=== PATIENT | male | born 1935 | race Caucasian/White ===

== ENCOUNTER 2016-07-28 17:18 | Emergency (ER) | payer OTHER ==
[2016-07-28 17:30] VITALS: RESP 16
[2016-07-28] MEDS ORDERED: OXYCODONE/APAP 5/325 TAB PO ONE (17:43)
--- NOTE | 2016-07-28 17:48 | EDPHY ---
H & P Time Seen by Provider: 07/28/16 17:28 HPI/ROS: CHIEF COMPLAINT: Left shoulder pain HISTORY OF PRESENT ILLNESS: This is a 80-year-old male presenting to the emergency room from [facility] for left shoulder and trapezius pain. Patient's son is at the bedside he reports patient took a fall 1 -2 months ago hyperextended his left arm initial x-rays were negative but questioning whether he tore his rotator cuff to the amount of pain he is having with range of motion, pain radiates to his trapezius. Patient states has been having intermittent pain since his fall but since Thursday pain has increased with increased pain to his left trapezius. Denies any new injury, no other complaints REVIEW OF SYSTEMS: Constitutional: No fever, no chills. Eyes: No discharge. No blurred vision ENT: No sore throat. Cardiovascular: No chest pain, no palpitations. Respiratory: No cough, no shortness of breath. Gastrointestinal: No abdominal pain, no vomiting. Genitourinary: No hematuria. Musculoskeletal: No back pain. Left shoulder pain Skin: No rashes. Neurological: No headache. Smoking Status: Never smoked Physical Exam: General Appearance: Alert, no distress. Eyes: Pupils equal and round no pallor or injection. ENT, Mouth: Mucous membranes moist. Respiratory: There are no retractions, lungs are clear to auscultation. Cardiovascular: Regular rate and rhythm. Gastrointestinal: Abdomen is soft and nontender, no masses, bowel sounds normal. Neurological: No focal deficits Skin: Warm and dry, no rashes. Musculoskeletal: Vertebral cervical spine nontender on palpation full range of motion without difficulty. left trapezius tenderness on palpation, left shoulder pain with range of motion no obvious deformity positive CMS intact Extremities: symmetrical, decreased range of motion left shoulder joint no swelling positive CMS intact Psychiatric: Patient is oriented X 3, patient acting appropriate Constitutional: Initial Vital Signs Temperature (C) 37.2 C 07/28/16 17:28 Heart Rate 78 07/28/16 17:28 Respiratory Rate 16 07/28/16 17:28 Blood Pressure 167/78 H 07/28/16 17:28 O2 Sat (%) 96 07/28/16 17:28 O2 Delivery Mode Room Air Allergies/Adverse Reactions: No Known Allergies Allergy (Verified 01/28/16 17:39) Home Medications: Medication Instructions Recorded Acetaminophen [Acetaminophen Extra 500 mg PO Q6H PRN 01/28/16 Strength] Cholecalciferol Vit D3 [Vitamin D3 50,000 unit PO Q7D 01/28/16 (*)] Cyanocobalamin [Vitamin B12 (*)] 1,000 mcg PO DAILY@08 01/28/16 Fenofibrate [Tricor 145 mg (*)] 145 mg PO DAILY@20 01/28/16 Ferrous Sulfate [Ferrous Sulf 325 325 mg PO TID 01/28/16 MG (*)] Finasteride [Proscar 5 MG (*)] 5 mg PO DAILY@08 01/28/16 Pantoprazole Sodium [Protonix 40mg 40 mg PO BID 01/28/16 (*)] Pregabalin [Lyrica] 25 mg PO TID 01/28/16 Sertraline HCl [Zoloft 50mg (*)] 50 mg PO DAILY 01/28/16 Tamsulosin HCl [Flomax 0.4 MG (*)] 0.8 mg PO DAILY@17 01/28/16 metFORMIN HCL [Metformin HCl ER] 1,000 mg PO BIDMEAL 01/28/16 traMADol [Ultram 50 mg (*)] 50 mg PO Q6H PRN 01/28/16 Enoxaparin [Lovenox 80 MG (*)] 80 mg SC BID #14 syr 01/29/16 Warfarin Sodium [Coumadin 5MG (*)] 5 mg PO DAILY AT 4PM #0 tab 01/29/16 Lidocaine 5% [Lidoderm 5% Patch 1 ea TD DAILY #3 patch 07/28/16 (*)] Medical Decision Making - Diagnostics Imaging Results: Imaging Impressions Upper Extremity MRI 07/28/16 17:44 Impression: 1. Large full-thickness tear involving the majority of the distal supraspinatus tendon retracted 2 cm. There is probably acute and chronic component with atrophy and edema. Moderate tendinopathy with mild partial tear infraspinatus tendon. Subacromial/subdeltoid bursitis. 2. Moderate tendinopathy intra-articular long head of the biceps tendon. 3. Partial tear posterior superior labrum and fraying and possible partial tear anterior inferior labrum. Minimal early degenerative change glenohumeral joint. Glenohumeral joint effusion. 4. Mild to moderate tendinopathy and partial tear distal subscapularis tendon. 5. Severe degenerative change acromioclavicular joint. Anterior curve to the acromion. Subacromial spur. Results called and discussed with Marielos Melendrez NP on 07/28/2016 at 1915 hours. ED Course/Re-evaluation: Discussed ED plan of care with patient and son: Pain medicine, MRI of left shoulder rule out any rotator cuff injury 1914: Spoke with Dr. Pope in regards to findings on MRI for rotator cuff injury 1944: Discussed these results with patient and patient's son, patient will go home with lidocaine patch and sling. Patient has prescription for tramadol at [facility] he take that as needed with ibuprofen. Also given number for Orthopedics to follow up with them. Discussed all discharge instructions with patient and son---> stable, discharge home Differential Diagnosis: Other differential diagnosis considered but not limited to shoulder dislocation , clavicle fracture, and other ligamentous injuries - Data Points Medications Given: Discontinued Medications Lidocaine (Lidoderm 5%) 1 ea TD DAILY IGNACIO Stop: 01/25/17 08:59 Last Admin: 07/28/16 20:34 Dose: 1 ea Oxycodone/Acetaminophen (Percocet 5/325) 1 tab PO EDNOW ONE Stop: 07/28/16 17:44 Last Admin: 07/28/16 17:54 Dose: 1 tab Departure - Departure Disposition: Home, Routine, Self-Care Clinical Impression: Injury of muscle or tendon of rotator cuff Qualifiers: Encounter type: initial encounter Laterality: left Qualified Code(s): S46.002A - Unspecified injury of muscle(s) and tendon(s) of the rotator cuff of left shoulder, initial encounter Condition: Good Instructions: Rotator Cuff Injury (ED), Rotator Cuff Tendinitis (ED) Additional Instructions: 1. Follow up with Orthopedics this week 2. You also have a prescription of tramadol take it as needed Referrals: Patient,NotPresent [Unknown] - As per Instructions [facility],. [Clinic] - As per Instructions Jalen Campo MD [Medical Doctor] - As per Instructions Prescriptions: Lidocaine 5% [Lidoderm 5% Patch (*)] 1 ea TD DAILY #3 patch
[2016-07-28] MEDS ORDERED: LIDOCAINE 5% 1 EA PATCH TD ONE (20:24)
[2016-07-28 20:37] VITALS: BP 155/62; PULSE 68; TEMP 98.6; O2SAT 94
[2016-07-28] MEDS ORDERED: PATCH REMOVAL 1 EA PATCH TD SCH (21:00)
[2016-07-29] MEDS ORDERED: LIDOCAINE 5% 1 EA PATCH TD SCH (09:00)
== END 2016-07-28 20:37 | disposition home or self-care (01) ==
LOC: EDUNIT#
DX: S46.002A Unspecified injury of muscle(s) and tendon(s) of the rotator cuff of left shoulder, initial encounter (principal); Z79.01 Long term (current) use of anticoagulants; X58.XXXA Exposure to other specified factors, initial encounter
CPT/HCPCS: 73221; 99284; A4565

== ENCOUNTER 2017-02-11 11:20 | Emergency (ER) | payer OTHER, MEDICAID ==
[2017-02-11 11:26] VITALS: BP 169/76; PULSE 72; RESP 16; TEMP 98.8; O2SAT 93
--- NOTE | 2017-02-11 11:30 | EDPHY ---
H & P Stated Complaint: LTA, HEAD LAC Source: Patient Exam Limitations: No limitations - Personal History Current Tetanus/Diphtheria Vaccine: Unsure - Medical/Surgical History Hx Asthma: No Hx Chronic Respiratory Disease: No Hx Diabetes: No Hx Cardiac Disease: No Hx Renal Disease: No Hx Cirrhosis: No Hx Alcoholism: No Hx HIV/AIDS: No Hx Splenectomy or Spleen Trauma: No Other PMH: HTN, cholecystectomy, anemia, fall 01/01 - Social History Smoking Status: Never smoked Time Seen by Provider: 02/11/17 11:26 HPI/ROS: CHIEF COMPLAINT: Limited trauma activation, mechanical fall, head injury HISTORY OF PRESENT ILLNESS: The patient is anticoagulated for history of thromboembolic disease. He presents to the emergency department as a limited trauma activation after he sustained a mechanical fall while walking earlier today. The patient fell forward striking his head. There was unknown loss of consciousness. He sustained a laceration over his right eyebrow. The patient denies any acute numbness or weakness. He denies antecedent chest pain or palpitations. He denies any chest pain, back pain or extremity complaints. The patient does complain of a mild frontal headache. He does complain of mild cervical spine pain. REVIEW OF SYSTEMS: A comprehensive 10 point review of systems is otherwise negative aside from elements mentioned in the history of present illness. (Mahin Nguyen) - Physical Exam Exam: General Appearance: Alert, no distress Head: 5 cm laceration noted over the right eyebrow, stellate Eyes: Pupils equal, round, reactive ENT, Mouth: No hemotympanum, no oral trauma Neck: Nontender, trachea midline Respiratory: No chest wall tender, subcutaneous air, lungs clear bilaterally Cardiovascular: Regular rate and rhythm Abdomen: Abdomen is soft and nontender, pelvis stable Skin: Superficial extremity abrasions Back: No midline T/L/S pain Extremities: Nontender, full range of motion Neurological: A&Ox3, normal motor function, normal sensory exam (Mahin Nguyen) Constitutional: Initial Vital Signs Temperature (C) 37.1 C 02/11/17 11:25 Heart Rate 72 02/11/17 11:25 Respiratory Rate 16 02/11/17 11:25 Blood Pressure 169/76 H 02/11/17 11:25 O2 Sat (%) 93 02/11/17 11:25 O2 Delivery Mode Room Air Allergies/Adverse Reactions: No Known Allergies Allergy (Verified 01/28/16 17:39) Home Medications: Medication Instructions Recorded Acetaminophen [Acetaminophen Extra 500 mg PO Q6H PRN 01/28/16 Strength] Cholecalciferol Vit D3 [Vitamin D3 50,000 unit PO Q7D 01/28/16 (*)] Cyanocobalamin [Vitamin B12 (*)] 1,000 mcg PO DAILY@08 01/28/16 Fenofibrate [Tricor 145 mg (*)] 145 mg PO DAILY@20 01/28/16 Ferrous Sulfate [Ferrous Sulf 325 325 mg PO TID 01/28/16 MG (*)] Finasteride [Proscar 5 MG (*)] 5 mg PO DAILY@08 01/28/16 Pantoprazole Sodium [Protonix 40mg 40 mg PO BID 01/28/16 (*)] Pregabalin [Lyrica] 25 mg PO TID 01/28/16 Sertraline HCl [Zoloft 50mg (*)] 50 mg PO DAILY 01/28/16 Tamsulosin HCl [Flomax 0.4 MG (*)] 0.8 mg PO DAILY@17 01/28/16 metFORMIN HCL [Metformin HCl ER] 1,000 mg PO BIDMEAL 01/28/16 traMADol [Ultram 50 mg (*)] 50 mg PO Q6H PRN 01/28/16 Enoxaparin [Lovenox 80 MG (*)] 80 mg SC BID #14 syr 01/29/16 Warfarin Sodium [Coumadin 5MG (*)] 5 mg PO DAILY AT 4PM #0 tab 01/29/16 Lidocaine 5% [Lidoderm 5% Patch 1 ea TD DAILY #3 patch 07/28/16 (*)] Medical Decision Making - Diagnostics Imaging Results: Imaging Impressions Cervical Spine CT 02/11/17 11:29 Impression: 1. Stable mild age-related atrophy. 2. No hemorrhage, mass effect, or definite acute peripheral infarct. 3. No evidence of acute cervical spine injury. 4. Stable degenerative disk disease. If symptoms worsen, additional imaging may be necessary. Findings discussed with Mahin Nguyen at 12:11 hour, 02/11/2017. Head CT 02/11/17 11:29 Impression: 1. Stable mild age-related atrophy. 2. No hemorrhage, mass effect, or definite acute peripheral infarct. 3. No evidence of acute cervical spine injury. 4. Stable degenerative disk disease. If symptoms worsen, additional imaging may be necessary. Findings discussed with Mahin Nguyen at 12:11 hour, 02/11/2017. Procedures: Procedure: Laceration repair. Verbal consent was obtained from the patient. The 5 cm laceration on the right forehead was anesthetized in the usual fashion. The wound was irrigated, draped and explored to its base with a gloved finger. There were no deep structures involved. No tendon injury was identified. The wound was repaired with 5-0 rapidly dissolving Vicryl, 9 deep sutures, 5 0 Prolene, 8 simple interrupted sutures. The wound repair was moderately complex multilayer closure. The procedure was performed by myself. (Gabriel Scanlon) ED Course/Re-evaluation: The patient presents to the ED is limited trauma activation after mechanical fall. The patient is anticoagulated in sustained a head injury and associated laceration. The patient arrived and was noted to be neurologically intact. Given his age in anticoagulation status he was taken for a CT scan of the head which demonstrates no evidence of intracranial hemorrhage or skull fracture. The patient did have some mild midline neck tenderness and a CT scan of the cervical spine was also performed which demonstrated no evidence of an acute fracture. The patient had no additional traumatic injuries noted on his examination. The patient's laceration was repaired by the physician senior it assistant under my supervision. The patient underwent serial examinations in the ED over a 2 hr period. At 2: 00 p.m. he is in no acute distress. His laceration has been repaired. No additional traumatic injury is appreciated on a repeat tertiary survey. The patient will be discharged home with instructions to return to the ED in 5 days for suture removal. He should return sooner for any headache, vomiting, abnormal behavior, new pain or other concerns. The patient will be transferred back to [facility]. He will follow up with his physician Dr. Waldron as scheduled. (Mahin Nguyen) Differential Diagnosis: Differential diagnosis considered includes intracranial hemorrhage, skull fracture, cervical spine fracture, spinal cord injury, neurovascular injury, anemia, metabolic abnormality (Mahin Nguyen) - Data Points Laboratory Results: Laboratory Results 02/11/17 12:00 02/11/17 12:00 02/11/17 02/11/17 02/11/17 12:00 12:00 12:00 WBC 6.96 10^3/uL 10^3/uL (3.80-9.50) RBC 3.48 10^6/uL L 10^6/uL (4.40-6.38) Hgb 11.3 g/dL L g/dL (13.7-17.5) Hct 35.0 % L % (40.0-51.0) MCV 100.6 fL H fL (81.5-99.8) MCH 32.5 pg pg (27.9-34.1) MCHC 32.3 g/dL L g/dL (32.4-36.7) RDW 14.0 % % (11.5-15.2) Plt Count 154 10^3/uL 10^3/uL (150-400) MPV 10.3 fL fL (8.7-11.7) Neut % (Auto) 74.8 % H % (39.3-74.2) Lymph % (Auto) 16.1 % % (15.0-45.0) [place] % (Auto) 6.2 % % (4.5-13.0) Eos % (Auto) 1.7 % % (0.6-7.6) Baso % (Auto) 0.6 % % (0.3-1.7) Nucleat RBC Rel Count 0.0 % % (0.0-0.2) Absolute Neuts (auto) 5.21 10^3/uL 10^3/uL (1.70-6.50) Absolute Lymphs (auto) 1.12 10^3/uL 10^3/uL (1.00-3.00) Absolute Monos (auto) 0.43 10^3/uL 10^3/uL (0.30-0.80) Absolute Eos (auto) 0.12 10^3/uL 10^3/uL (0.03-0.40) Absolute Basos (auto) 0.04 10^3/uL 10^3/uL (0.02-0.10) Absolute Nucleated RBC 0.00 10^3/uL 10^3/uL (0-0.01) Immature Gran % 0.6 % % (0.0-1.1) Immature Gran # 0.04 10^3/uL 10^3/uL (0.00-0.10) PT 21.9 SEC H SEC (12.0-15.0) INR 1.90 H (0.83-1.16) APTT 29.2 SEC SEC (23.0-38.0) Sodium 142 mEq/L mEq/L (134-144) Potassium 4.1 mEq/L mEq/L (3.5-5.2) Chloride 106 mEq/L mEq/L (97-110) Carbon Dioxide 25 mEq/l mEq/l (22-31) Anion Gap 11 mEq/L mEq/L (8-16) BUN 13 mg/dL mg/dL (7-23) Creatinine 0.9 mg/dL mg/dL (0.7-1.3) Estimated GFR > 60 Glucose 125 mg/dL H mg/dL (70-100) Calcium 8.6 mg/dL mg/dL (8.5-10.4) Departure - Departure Disposition: Home, Routine, Self-Care Clinical Impression: Fall, Facial laceration Condition: Good Instructions: Care For Your Stitches (ED), Laceration (ED), Head Injury (ED) Additional Instructions: 1. Suture removal in 5 days, you can return to the emergency department to have this performed. 2. Return to the ED sooner for any severe headache, vomiting, numbness, weakness, new pain or other concerns. 3. Please follow up with your primary care provider as scheduled.
[2017-02-11 12:08] LABS: PLATELET COUNT 154 10^3/uL (150-400)
[2017-02-11 12:16] LABS: INR 1.9 (0.83-1.16); PROTIME(PATIENT) 21.9 SEC (12.0-15.0)
--- NOTE | 2017-02-11 14:17 | ASMTCMCOM ---
CM Note CM Note Notes: Patient's son (Jalen) contacted and informed of patient's visit to the ER . He is unavailable to pick patient up at this time. Transporation back to [facility] arranged with Chey at . Date Signed: 02/11/2017 02:17 PM Electronically Signed By:Lashae Meeks RN
[2017-02-11] MEDS ORDERED: TDAP ADULT 0.5 ML INJ (BOOSTRIX) IM ONE (14:24)
== END 2017-02-11 15:04 | disposition home or self-care (01) ==
LOC: EDUNIT#
PROC: 0HQ1XZZ Repair Face Skin, External Approach (ICD-10-PCS; principal; 2017-02-11)
DX: S01.81XA Laceration without foreign body of other part of head, initial encounter (principal); I10 Essential (primary) hypertension; Z23 Encounter for immunization; Z79.01 Long term (current) use of anticoagulants; W18.09XA Striking against other object with subsequent fall, initial encounter; Y99.8 Other external cause status; Y93.01 Activity, walking, marching and hiking

== ENCOUNTER 2017-10-22 17:57 | Emergency (ER) | payer OTHER, MEDICAID ==
--- NOTE | 2017-10-22 17:51 | EDPHY ---
H & P Time Seen by Provider: 10/22/17 18:00 Constitutional: Initial Vital Signs Temperature (C) 36.8 C 10/22/17 18:01 Heart Rate 74 10/22/17 18:01 Respiratory Rate 18 10/22/17 18:01 Blood Pressure 147/66 H 10/22/17 18:01 O2 Sat (%) 95 10/22/17 18:01 O2 Delivery Mode Room Air Allergies/Adverse Reactions: No Known Allergies Allergy (Verified 01/28/16 17:39) Home Medications: Medication Instructions Recorded Acetaminophen [Acetaminophen Extra 500 mg PO Q6H PRN 01/28/16 Strength] Cholecalciferol Vit D3 [Vitamin D3 50,000 unit PO Q7D 01/28/16 (*)] Cyanocobalamin [Vitamin B12 (*)] 1,000 mcg PO DAILY@08 01/28/16 Finasteride [Proscar 5 MG (*)] 5 mg PO DAILY@01/28/16 Pantoprazole Sodium [Protonix 40mg 40 mg PO BID 01/28/16 (*)] Pregabalin [Lyrica] 25 mg PO TID 01/28/16 Sertraline HCl [Zoloft 50mg (*)] 50 mg PO DAILY 01/28/16 Tamsulosin HCl [Flomax 0.4 MG (*)] 0.8 mg PO DAILY@17 01/28/16 metFORMIN HCL [Metformin HCl ER] 1,000 mg PO BIDMEAL 01/28/16 traMADol [Ultram 50 mg (*)] 50 mg PO Q6H PRN 01/28/16 Acetaminophen Extra Strength 10/22/17 Trolamine Salicylate/Aloe Vera 10/22/17 [Aspercreme 10% Cream] Medical Decision Making - Diagnostics Imaging Results: Imaging Impressions Hip X-Ray 10/22/17 18:04 Impression: Heterotopic bone formation over the left greater trochanter compatible prior trauma. No acute fracture identified. Right sacroiliac joint osteoarthritis. Imaging: I viewed and interpreted images myself ED Course/Re-evaluation: CHIEF COMPLAINT: Left hip pain HISTORY OF PRESENT ILLNESS: This patient is an 81 arriving via EMS from [facility] who complains of left hip pain following a mechanical fall earlier today. His fell this evening and he tried to help her get up. He fell backwards onto his left hip. He endorses discomfort in his left hip and left inguinal region. He denies any other injuries from today's fall. He felt well prior to the incident, no lightheadedness, chest pain, shortness of breath. The fall was purely mechanical. No other recent trauma or illness. No further complaints. REVIEW OF SYSTEMS: A comprehensive 10 system review of systems is otherwise negative aside from elements mentioned in the history of present illness and medical decision making. PHYSICAL EXAM: HR, BP, O2 Sat, RR. Temp noted General Appearance: Alert, well hydrated, appropriate, and non-toxic appearing. Head: Atraumatic without scalp tenderness or obvious injury Eyes: Pupils equal, round, reactive to light and accommodation, EOMI, no trauma , no injection. Ears: Clear bilaterally, no perforation, normal landmarks Nose: Atraumatic, no rhinorrhea, clear. Throat: There is no erythema or exudates, no lesions, normal tonsils, mucus membranes moist. Neck: Supple, nontender, no lymphadenopathy. Respiratory: No retractions, no distress, no wheezes, and no accessory muscle use. Lungs are clear to auscultation bilaterally. Cardiovascular: Regular rate and rhythm, no murmurs, rubs, or gallops. Bilateral carotid, radial, dorsalis pedis, and posterior tibial pulses intact. Good capillary refill all extremities. Gastrointestinal: Abdomen is soft, nontender, non-distended, no masses. Musculoskeletal: Normal active ROM of all extremities, atraumatic. Neurological: Alert, appropriate, and interactive. Nonfocal neuro exam. Skin: No rashes, good turgor, no nodules on palpation. Past medical history: Hypertension, diabetes mellitus, anemia Past surgical history: Cholecystectomy Family history: Noncontributory. Social history: Lives in a correction facility with his . . Retired. DIFFERENTIAL DIAGNOSIS: The differential diagnosis for the patient's trauma included but was not limited to intracranial injury, long bone and pelvic bone fractures, spinal injury, intra-abdominal injury, and intra-thoracic injury. MEDICAL DECISION MAKIN81 y/o male presents with left hip pain following a mechanical fall earlier today. Plan for x-ray left hip. 18:34 Reviewed hip x-ray. No fracture or other acute processes. Possible prior trauma to L hip, nothing acute. Radiologist report concurs. Plan to discharge home in good condition. Plan to administer 600mg PO ibuprofen for pain relief. Follow up and return precautions discussed. He is comfortable with this plan. - Data Points Medications Given: Discontinued Medications Ibuprofen (Motrin) 600 mg PO EDNOW ONE Stop: 10/22/17 20:32 Last Admin: 10/22/17 20:35 Dose: 600 mg Departure - Departure Disposition: Home, Routine, Self-Care Clinical Impression: Contusion of left hip Qualifiers: Encounter type: initial encounter Qualified Code(s): S70.02XA - Contusion of left hip, initial encounter Condition: Good Instructions: Hip Contusion (ED) Additional Instructions: 1. Follow up with your primary care provider for symptoms unresolved. 2. Return to the emergency department for severe pain, difficulty walking, numbness or tingling in your extremities, or other worsening of condition. Referrals: Nereyda Spencer [place] [place] - As per Instructions Report Scribed for: Nir Issa Report Scribed by: Sandra Gruber Date of Report: 10/22/17 Time of Report: 18:04
--- NOTE | 2017-10-22 18:57 | ASMTCMCOM ---
CM Note CM Note Notes: 10/22/2017 Case Management Note RN requested assistance with transport. Pt resides at [facility]. Phone call to [facility], instructed by [facility] staff to arrange transport with [facility] stretcher to bill [facility]. Phone call to [facility]. group leader [employer] testing at 2030 tonight. PCS completed indicating [facility] to be billed for transport costs. No further case management d/c needs identified. Date Signed: 10/22/2017 06:56 PM Electronically Signed By:Lucia Rasheed RN
[2017-10-22 20:30] VITALS: BP 144/62
[2017-10-22] MEDS ORDERED: IBUPROFEN 600 MG TAB PO ONE (20:31)
== END 2017-10-22 20:39 | disposition home or self-care (01) ==
LOC: EDUNIT#
DX: S70.02XA Contusion of left hip, initial encounter (principal); W19.XXXA Unspecified fall, initial encounter; Y93.F2 Activity, caregiving, lifting; Y92.129 Unspecified place in nursing home as the place of occurrence of the external cause; Y99.8 Other external cause status